=== PATIENT | female | born 1980 | race African-American/Black ===

== ENCOUNTER 2023-05-14 18:16 | Emergency (ER) | payer BC ==
[~2023-05-14] VITALS: Ht 172.7 cm; Wt 72.0 kg
[2023-05-14 18:24] VITALS: TEMP 98.5; O2SAT 100
[2023-05-14 19:33] LABS: BASOPHILS % 0.4 % (0.0-2.0); EOSINOPHILS % 7.5 % (0.0-5.0); HEMOGLOBIN. 12.8 g/dL (12.0-16.0); LYMPHOCYTES % 40.4 % (20.0-50.0); MEAN CORPUSCULAR HEMOGLOBIN 29.6 pg (28.0-32.0); MEAN CORPUSCULAR HGB CONC 32.8 g/dL (31.0-37.0); MEAN CORPUSCULAR VOLUME 90.2 fL (81.0-99.0); MEAN PLATELET VOLUME 8.3 fl (7.4-10.4); MONOCYTES % 10.2 % (2.0-8.0); NEUTROPHILS % 41.5 % (40.0-76.0); PLATELET 236 x1000/uL (130-400); RED BLOOD CELL COUNT 4.32 mill/uL (4.2-5.4); WHITE BLOOD COUNT 4.7 x1000/uL (4.5-11.0)
[2023-05-14 19:39] LABS: PROTHROMBIN TIME 10.4 sec (9.6-11.0)
[2023-05-14 19:41] LABS: CHLORIDE 104 mEq/L (98-107); INDEX HEMOLYSI 1 (1-3); INDEX ICTERIC 1 (1-4); INDEX LIPEMIC 1 (1-3); POTASSIUM 4.8 mEq/L (3.5-5.1); SODIUM 134 mEq/L (136-145)
[2023-05-14 19:46] LABS: ALBUMIN 3.5 g/dL (3.4-5.0); CARBON DIOXIDE 27 mEq/L (21-32); GLUCOSE 94 mg/dL (70-105); UREA NITROGEN BLOOD 17 mg/dL (7-21)
[2023-05-14 19:52] LABS: ALANINE AMINOTRANSFERASE 21 IU/L (13-61); ASPARTATE AMINOTRANSFERASE 20 IU/L (15-37); BILIRUBIN TOTAL 0.2 mg/dL (0.1-1.0); CREATININE 0.9 mg/dL (0.6-1.3); PROTEIN TOTAL 7.2 g/dL (6.0-8.3); TROPONIN I HIGH SENSITIVITY 4 ng/L (<54)
[2023-05-14 20:12] LABS: HCG SCREEN NEGATIVE
[2023-05-14 21:07] LABS: TROPONIN I HIGH SENSITIVITY 5 ng/L (<54)
[2023-05-14 21:21] VITALS: BP 126/78; PULSE 78; RESP 16
[2023-05-14 22:18] LABS: CLARITY URINE CLOUDY (CLEAR); COLOR URINE YELLOW (YELLOW); GLUCOSE URINE NEGATIVE (NEGATIVE); KETONES URINE NEGATIVE (NEGATIVE); LEUKOCYTE ESTERASE URINE NEGATIVE (NEGATIVE); NITRITE URINE NEGATIVE (NEGATIVE); OCCULT BLOOD URINE NEGATIVE (NEGATIVE); PROTEIN URINE NEGATIVE (NEGATIVE); SPECIFIC GRAVITY URINE 1.018 (1.005-1.030)
[2023-05-14 22:20] LABS: SQUAMOUS EPITHELIAL CELL URINE 1+ /lpf (RARE/1+); YEAST URINE NONE SEEN
[2023-05-14 22:32] LABS: BACTERIA URINE 2+; RBC URINE 0-2 /hpf (0-2); WBC URINE 0-2 /hpf (0-2)
== END 2023-05-14 21:23 | disposition home or self-care (01) ==
LOC: ER 18:16
DX: R07.9 Chest pain, unspecified (principal); J45.909 Unspecified asthma, uncomplicated; Z98.890 Other specified postprocedural states
CPT/HCPCS: 36415; 71045; 80053; 81003; 81025; 84484; 84703; 85025; 93005; 99285